=== PATIENT | female | born 1975 | race Caucasian/White ===

== ENCOUNTER 2024-01-10 15:56 | Outpatient (CLI) | payer BC, SELFPAY ==
[2024-01-10 15:55] LABS: Microscopic, Urine URINE MICROSCOPIC (MICROSCOPIC)
[2024-01-10 16:17] LABS: Appearance,Urine CLEAR (Clear); Bilirubin,Urine Negative (Negative); Blood, Urine 1+ (Negative); Color,Urine YELLOW (Yellow); Glucose,Urine (UA) Negative (Negative); Ketones,Urine Negative (Negative); Leukocyte Esterase,Urine Negative (Negative); Nitrate,Urine Negative (Negative); Protein,Urine Negative (Negative); Specific Gravity, Urine >= 1.030 (1.005-1.030); Urobilinogen,Urine 0.2 EU/dl (0.2)
[2024-01-10 16:42] LABS: RBC,Urine Occasional #/hpf (0-3); Squamous Epithelial Cell,Urine Occasional #/hpf (0-5); WBC,Urine Occasional #/hpf (0-3)
[2024-01-10 16:43] LABS: Bacteria,Urine 3+ /lpf
[2024-01-10 16:44] LABS: Amorphous Sediment,Urine 3+ /lpf
[2024-01-15 23:51] LABS: Atopobium vaginae Low - 0 Score (.); BVAB2 Low - 0 Score (.); Candida albicans NAA Negative (Negative); Candida glabrata Negative (Negative); Chlamydia Trachomatis NAA Negative (Negative); HSV 1 NAA Negative (Negative); HSV 2 NAA Negative (Negative); Megasphaera 1 Low - 0 Score (.); Neisseria gonorrhoeae NAA Negative (Negative); Trich vag NAA Negative (Negative)
[2024-01-22 09:50] LABS: Miscellaneous Test SCANNED IMAGE
== END 2024-01-10 23:59 | disposition home or self-care (01) ==
LOC: LAB.DROPOF 15:56
PROVIDERS: PCP Urology; Visit Provider Urology
DX: N39.3 Stress incontinence (female) (male) (principal); N20.0 Calculus of kidney; R31.9 Hematuria, unspecified; N39.41 Urge incontinence; B96.1 Klebsiella pneumoniae [K. pneumoniae] as the cause of diseases classified elsewhere
CPT/HCPCS: 81001; 87086; 87088; 87186; 87491; 87529; 87591; 87661; 87798; 87801

== ENCOUNTER 2024-01-11 07:47 | Outpatient (CLI) | payer BC, SELFPAY ==
--- NOTE | 2024-01-11 07:48 | CT_ITS ---
FINAL REPORT TECHNIQUE: Axial CT images of the abdomen and pelvis were obtained before and after the administration of IV contrast. Oral contrast was administered.This study was performed with techniques to keep radiation doses as low as reasonably achievable (ALARA). Individualized dose reduction techniques using automated exposure control or adjustment of mA and/or kV according to the patient''s size were employed. CLINICAL HISTORY: Renal stones, uti's COMPARISON: None FINDINGS: Abdomen: The lung bases are clear. The heart is normal in size. There are several small hepatic cysts present in the liver, which is otherwise unremarkable in appearance. The gallbladder has been surgically resected.. The spleen is unremarkable. No adrenal masses present. The pancreas has an unremarkable appearance. The kidneys enhance normally. The aorta is normal in caliber. There is no free fluid or adenopathy. No mass or abnormal fluid collection is seen. Precontrast images demonstrate several less than 3 mm in size nonobstructing right renal stones. There is a 9 mm stone present in the lower pole of the left kidney. Pelvis: The appendix is not well visualized. The urinary bladder is unremarkable. The uterus has been surgically resected. No inflammatory process is seen. There is no evidence of mass or adenopathy. There is no evidence of bowel obstruction. There is an L5 compression fracture with changes of kyphoplasty present. There are several sigmoid diverticula present without evidence of acute inflammation. IMPRESSION: Bilateral nonobstructing renal stones as described, the largest a 9 mm stone in the lower pole of the left kidney. No hydronephrosis or focal renal masses identified. Reviewed, Interpreted and Dictated by Ismael Nolen III, MD Transcribed by Latasha Napoles Authenticated and [facility]
[2024-01-11] MEDS: IOPAMIDOL-370 (76%);100ML BOTTLE 75 ML IV (08:32)
[2024-01-11] MEDS: SODIUM CHLORIDE 0.9% 10ML SYR (RAD ONLY) 10 ML IV (08:32)
== END 2024-01-11 23:59 | disposition home or self-care (01) ==
LOC: RAD 07:48
PROVIDERS: Visit Provider Urology
DX: N20.0 Calculus of kidney (principal)
CPT/HCPCS: 74178; Q9967

== ENCOUNTER → 2024-02-25 10:24 | Day surgery (SDC) | payer BC, SELFPAY ==
[2024-02-25 10:56] VITALS: BP 121/71; PULSE 66; RESP 16; TEMP 36.2; O2SAT 98
[2024-02-25] MEDS: LACTATED RINGERS 1000ML 1,000 ML 50 ML IV (13:00)
[2024-02-25] MEDS: LIDOCAINE 2% UROJET 10ML 10 ML (13:00)
--- NOTE | 2024-02-25 13:00 | [facility].PROCNOTE ---
[facility] Procedure Note Date: 02/25/24 Time: 13:00 Procedure Note:: Preop diagnosis: Hematuria/renal stone/ureteral stone Postop diagnosis: Urethritis/ renal stone/ureteral stone Operative note: The patient's been found to have microscopic hematuria. She has known ureteral stone and its likely the source but I needed to make sure we were not overlooking bladder tumor. She is troubled with recurrent urinary tract infection and overactive bladder. She is trying to be set up for an appointment for a 10 mm ureteral stone in the collecting system on the left. The patient was brought to the cystoscopy suite. She is prepped and draped in the standard fashion. A urine culture and sensitivity has been set up on a catheterized sample. She underwent flexible cystoscopy. The patient has moderate urethritis. Her ureteral orifice ease are normal bilaterally with clear reflux of urine. The bladder itself is [place] pink in color throughout and there is no evidence of bladder ulcer stone or lesion. The patient likely has missed her call from and she did not contact us in reference to her appointment for ureteroscopy. She is having some flank pain on the left with a known stone is. Over the weekend if pain gets more severe she must go to the [facility] emergency room. Otherwise she is going to call our office Wednesday and we will going to see the status of her consultation that we set up she says some 6 weeks ago. She had significant bladder spasms after cystoscopy. I can give a Levaquin in case of a UTI with C/S pending. I suggested a xylocaine rescue bladder instillation but presently did not want to be catheterized. Part of the pains is likely from as obstructing stone. She is allergic to narcotics. After further consideration she elected to have a xylocane bladder recovery instillation. 50 cc 1% xylocane was place in the bladder. SHe had noted imporvement from the bladder spasms and then was able to go home.
[2024-02-25 13:10] VITALS: BP 153/76; PULSE 83; RESP 18; TEMP 36.2; O2SAT 99
[2024-02-25] MEDS: levoFLOXacin 500MG TAB 500 MG PO (13:43)
[2024-02-25 14:00] VITALS: BP 153/76; PULSE 83; RESP 18; O2SAT 99
[2024-02-25 15:26] LABS: Microscopic,Cath URINE MICROSCOPIC (MICROSCOPIC)
[2024-02-25 15:31] LABS: Appearance,Urine/Cath CLEAR (Clear); Bilirubin,Cath Negative (Negative); Blood, Urine/Cath Negative (Negative); Color,Urine/Cath YELLOW (Yellow); Glucose,Urine/Cath (UA) Negative (Negative); Ketones,Urine/Cath Negative (Negative); Leukocyte Esterase,Cath Negative (Negative); Nitrate,Cath Negative (Negative); Protein,Urine/Cath Negative (Negative); Specific Gravity, Urine/Cath 1.015 (1.005-1.030); Urobilinogen,Cath 0.2 EU/dl (0.2)
[2024-02-25 16:08] LABS: WBC,Urine/Cath Occasional #/hpf (0-3)
== END | disposition home or self-care (01) ==
PROVIDERS: Visit Provider Urology
PROC: 0TJB8ZZ Inspection of Bladder, Via Natural or Artificial Opening Endoscopic (ICD-10-PCS; CPT 52000; principal; 2024-02-25 11:45)
DX: N20.2 Calculus of kidney with calculus of ureter (principal); N34.2 Other urethritis; R31.29 Other microscopic hematuria; N32.89 Other specified disorders of bladder
CPT/HCPCS: 52000; 51700; 81001; J7120